=== PATIENT | male | born 1955 | race Caucasian/White ===

== ENCOUNTER 2021-12-16 07:45 | Day surgery (SDC) | payer MEDICARE, BC ==
[2021-12-09 16:16] LABS: BASOPHILS % (AUTO) 0.8 % (0-1); EOSINOPHILS # (AUTO) 0.1 X10'3 (0-0.9); EOSINOPHILS % (AUTO) 2.3 % (0-6); LYMPHOCYTES # (AUTO) 1.3 X10'3 (1.1-4.8); MEAN CORPUSCULAR VOLUME 84.8 FL (78-98); MEAN PLATELET VOLUME 6.7 FL (7.4-10.4); MONOCYTES # (AUTO) 0.6 X10'3 (0-0.9); MONOCYTES % (AUTO) 8.9 % (2-12); NEUTROPHILS # (AUTO) 4.4 X10'3 (1.8-7.7); PRE OP HEMATOCRIT 44.9 % (42.0-52.0); PRE OP HEMOGLOBIN 14.8 g/dL (14.0-17.9); PRE OP PLATELET COUNT 272 X10'3 (140-440); RED CELL DISTRIBUTION WIDTH 13.6 % (11.5-14.5)
[2021-12-09 16:30] LABS: ALBUMIN 3.9 G/DL (3.4-5.0); ALBUMIN/GLOBULIN RATIO 1.1 (1.1-1.5); ALKALINE PHOSPHATASE 81 IU/L (46-116); BLOOD UREA NITROGEN 15 MG/DL (7-18); BUN/CREATININE RATIO 14.2 (5.4-32.0); CALCIUM 9.1 MG/DL (8.5-10.1); CHLORIDE 106 MMOL/L (99-107); CREATININE 1.06 MG/DL (0.60-1.10); PRE OP ALT 16 U/L (30-65); PRE OP ANION GAP 8 (8-16); PRE OP AST 20 U/L (10-37); PRE OP BILIRUB, TOTAL 0.4 MG/DL (0.0-1.0); PRE OP GLUCOSE 92 MG/DL (70-104); PRE OP POTASSIUM 3.9 MMOL/L (3.4-5.1); PRE OP SODIUM 141 MMOL/L (135-145); TOTAL PROTEIN 7.3 G/DL (6.4-8.2); eGFR 70 ML/MIN
[2021-12-16] VITALS (14 sets, daily range): BP systolic 111–152; BP diastolic 69–94
[~2021-12-16] VITALS: Ht 180.3 cm; Wt 89.5 kg
[~2021-12-16 07:45] MED LIST: chlorhexidine gluc 4% **topical ** 120ml btl. TP ONE; famotidine 20mg tablet PO ONE; meperidine/PF 25mg/ml syringe IV PRN; morphine 2 MG/ML inj. syringe IV PRN; morphine 4 MG/ML inj SYRINge IV PRN; ondansetron/PF 4mg/2ml inj IV PRN; proCHLORperazine 10 MG/2 ml inj IV PRN; ringers solution, lacted 1,000 ML IV SCH
[2021-12-16] MEDS ORDERED: BUPIVAcaine/PF 2.5 mg/ml (0.25%) 30ml vial ONE (07:51)
[2021-12-16] MEDS ORDERED: LIDOcaine 1% W/epiNEPHrine 1:100,000 20ml vial ONE (07:51)
[2021-12-16] MEDS ORDERED: tobramycin 40mg/ml inj ONE (07:51)
--- NOTE | 2021-12-16 09:33 | NUR ---
PT PREPPED FOR SURGERY, ABDOMEN AND BILATERAL GROINS SHAVED BY XI - ARMEN ARNOLD. IV STARTED BY MONIKA IN RIGHT HAND. PT VERBALIZED UNDERSTANDING OF ROBOTIC LAPAROSCOPIC SURGERY, SCHDULED FOR LEFT AND UMBILICAL WITH POSSIBLE RIGHT INGUINAL
[2021-12-16] MEDS ORDERED: fentaNYL /PF 50mcg/ml 5ml ampule ONE (11:26)
[2021-12-16] MEDS ORDERED: midazolam 1 mg/ML 2ml injection ONE (11:26)
[2021-12-16] MEDS ORDERED: propofol inj 20 ML IV ONE (11:27)
[2021-12-16] MEDS ORDERED: sevoflurane 250ml liquid IH ONE (11:27)
[2021-12-16] MEDS ORDERED: LIDOcaine 2% (20mg/ml) 5ml vial ONE (11:27)
[2021-12-16] MEDS ORDERED: rocuronium 10mg/ml inj IV ONE (11:28)
[2021-12-16] MEDS ORDERED: ondansetron/PF 4mg/2ml inj ONE (11:47)
[2021-12-16] MEDS ORDERED: dexamethasone sod phosphate 4mg/ml inj. ONE (11:47)
[2021-12-16] MEDS ORDERED: acetaminophen 1,000mg/100ml IV 100 ML IV ONE (13:21)
--- NOTE | 2021-12-16 13:52 | NUR ---
ADMITTED TO PACU FROM OR ACCOMPANIED BY ANESTHESIA. INTIAL PHYSICAL ASSESSMENT DONE AND RECORDED. REPORT RECEIVED FROM DR AGUILA AND RITIKA AVITIA. 20G IV TO RIGHT HAND, LAP SITES TO ABD X3 WITH STERI STRIPS AND TEGADERM CDI. Addendum: 12/16/21 at 1413 by Mayuri Gary RN Amended: Links added.
--- NOTE | 2021-12-16 15:46 | NUR ---
PT UP TO BR TO VOID. 100ML DARK YELLOW URINE. BLADDER SCAN FOR APROX 25ML. PT CONTINUES TO DRINK WATER WILL ATTEMPT BLADDER SCAN AND VOID IN THE NEXT HOUR
--- NOTE | 2021-12-16 16:30 | NUR ---
PT ABLE TO VOID 100 ML, BLADDER SCAN POST 50ML. PT DENIES PAIN.
--- NOTE | 2021-12-16 17:21 | NUR ---
DISCHARGE CRITERIA MET, DISCHARGE INSTRUCTIONS GIVEN, DEMONSTRATES VERBAL UNDERSTANDING. DISCHARGED HOME IN GOOD CONDITION. 20G IV REMOVED CATH INTACT. LAP SITES X3 CDI Addendum: 12/16/21 at 1725 by Mayuri Gary RN Amended: Links added.
== END 2021-12-16 16:52 | disposition home or self-care (01) ==
LOC: PAS 07:45
PROVIDERS: ATTEND Colon & Rectal Surgery
DX: K40.90 Unilateral inguinal hernia, without obstruction or gangrene, not specified as recurrent (principal); K42.0 Umbilical hernia with obstruction, without gangrene; Z79.899 Other long term (current) drug therapy; Z98.890 Other specified postprocedural states
CPT/HCPCS: 36415; 49587; 49650; 80053; 82948; 85025; 93005; A6258; C1758; C1781; J0131; J0690; J1100; J2250; J2405; J2704; J3010; J3260; J3490; J7030; J7060; J7120; Z7506; Z7508; Z7512; A4215; A4618; A7000